=== PATIENT | female | born 1995 | race American Indian/Alaskan Native ===

== ENCOUNTER 2018-03-26 10:33 | Emergency (ER) | payer OTHER ==
[2018-03-26 11:03] VITALS: RESP 18; O2SAT 100
--- NOTE | 2018-03-26 11:36 | ED PDOC ---
Arrival/HPI - General Historian: Patient - History of Present Illness Time/Duration: 1-3 hours Symptom Onset: Sudden Symptom Course: Improving Quality: Pressure, Tightness Severity Level: 8 Activities at Onset: Light <Brendon Leroy - Last Filed: 03/26/18 16:06> <Michelet Ontiveros - Last Filed: 03/27/18 07:30> - General Chief Complaint: Chest Pain Time Seen by Provider: 03/26/18 11:03 - History of Present Illness Narrative History of Present Illness (Text): 03/26/18 11:30 Patient is a 22 yo F with no signficant PMHx who presents to the ED with R sided chest pain that began ~1-2 hours ago. She described the pain as a pressure/tightness over her chest with associated palpitations, constant in nature, rated 8/10 in severity. She denies any radiation of pain to her extremities or neck. Denies any headaches, dizziness, changes in vision, or associated nausea/vomiting. Of note, she says she has had pain like this before, her most recent episode 2 days ago. At the time, she also had R sided chest pr essure that subsided after a few hours. No other acute complaints at this time. PMHx: denies PSHx: denies Allergies: NKDA Home Medications: none FHx: HTN--mother Social Hx: denies alcohol, tobacco, illicit drug use. Denies OCP use. (RadBrendon) 03/26/18 11:30 Patient is a 22 yo F with no signficant PMHx who presents to the ED with R sided chest pain that began ~1-2 hours ago. She described the pain as a pressure/tightness over her chest with associated palpitations, constant in nature, rated 8/10 in severity. She denies any radiation of pain to her extremities or neck. Denies any headaches, dizziness, changes in vision, or associated nausea/vomiting. Of note, she says she has had pain like this before, her most recent episode 2 days ago. At the time, she also had R sided chest pressure that subsided after a few hours. No other acute complaints at this time. PMHx: denies PSHx: denies Allergies: NKDA Home Medications: none FHx: HTN--mother Social Hx: denies alcohol, tobacco, illicit drug use. Denies OCP use. (Michelet Ontiveros) Past Medical History - Provider Review Nursing Documentation Reviewed: Yes - Travel History Have you recently traveled outside [place] w/in the past 3 mons?: No - Past History Past History: No Previous - Cardiac Hx Cardiac Disorders: No - Pulmonary Hx Respiratory Disorders: No - Neurological Hx Neurological Disorder: No - HEENT Hx HEENT Disorder: No - Renal Hx Renal Disorder: No - Endocrine/Metabolic Hx Endocrine Disorders: No - Hematological/Oncological Hx Blood Disorders: No - Integumentary Hx Dermatological Disorder: No - Musculoskeletal/Rheumatological Hx Musculoskeletal Disorders: No - Gastrointestinal Hx Gastrointestinal Disorders: No - Genitourinary/Gynecological Hx Genitourinary Disorders: No - Psychiatric Hx Psychophysiologic Disorder: No Hx Substance Use: No - Anesthesia Hx Anesthesia: No <Brendon Leroy - Last Filed: 03/26/18 16:06> Family/Social History - Physician Review Nursing Documentation Reviewed: Yes Family/Social History: Hypertension Smoking Status: Never Smoked Hx Alcohol Use: No Hx Substance Use: No <Brendon Leroy - Last Filed: 03/26/18 16:06> Allergies/Home Meds <Brendon Leroy - Last Filed: 03/26/18 16:06> <Michelet Ontiveros - Last Filed: 03/27/18 07:30> Allergies/Adverse Reactions: Allergies No Known Allergies Allergy (Verified 03/26/18 10:55) Home Medications: Home Meds Medication Instructions Recorded Confirmed RX: No Known Home Med 03/26/18 03/26/18 Review of Systems - Review of Systems Constitutional: Normal Eyes: Normal ENT: Normal Respiratory: Normal, SOB Cardiovascular: Chest Pain, Palpitations. absent: Edema, Calf Pain, Syncope Gastrointestinal: Normal. absent: Abdominal Pain, Constipation, Diarrhea, Nausea, Vomiting Genitourinary Female: Normal. absent: Dysuria, Frequency, Urine Output Changes Musculoskeletal: Normal Skin: Normal Neurological: Normal. absent: Headache, Dizziness Endocrine: Normal Psychiatric: Normal <Brendon Leroy - Last Filed: 03/26/18 16:06> Physical Exam Vital Signs Reviewed: Yes Temperature: Afebrile Blood Pressure: Normal Pulse: Tachycardic Respiratory Rate: Normal Appearance: Positive for: Well-Appearing, Non-Toxic Pain Distress: Mild Mental Status: Positive for: Alert and Oriented X 3 - Systems Exam Head: Present: Atraumatic, Normocephalic Pupils: Present: PERRL Extroacular Muscles: Present: EOMI Conjunctiva: Present: Normal Ears: Present: Normal Mouth: Present: Moist Mucous Membranes Neck: Present: Normal Range of Motion Respiratory/Chest: Present: Clear to Auscultation, Good Air Exchange. No: Respiratory Distress, Accessory Muscle Use, Wheezes, Rales, Rhonchi Cardiovascular: Present: Normal S1, S2, Tachycardic. No: Murmurs Abdomen: Present: Normal Bowel Sounds. No: Tenderness, Distention, Rebound, Guarding, Mass/Organomegaly Upper Extremity: Present: Normal Inspection, Normal ROM, NORMAL PULSES, Capillary Refill < 2s. No: Cyanosis, Edema Lower Extremity: Present: Normal Inspection, NORMAL PULSES, Normal ROM. No: Edema, CALF TENDERNESS, Capillary Refill < 2 s Neurological: Present: CN II-XII Intact, Speech Normal Skin: Present: Warm, Dry, Normal Color Psychiatric: Present: Alert, Oriented x 3, Normal Insight, Normal Concentration <Brendon Leroy - Last Filed: 03/26/18 16:06> Vital Signs Temp Pulse Resp BP Pulse Ox 03/26/18 11:44 97.9 F 88 18 131/81 100 03/26/18 10:59 98.7 F 96 H 18 139/88 100 03/26/18 10:53 98.7 F 95 H 18 136/88 100 Medical Decision Making - EKG Interpretation Interpreted by ED Physician: Yes Type: 12 lead EKG <Brendon Leroy - Last Filed: 03/26/18 16:06> <Michelet Ontiveros - Last Filed: 03/27/18 07:30> ED Course and Treatment: 03/26/18 11:40 Impression: 22 yo F with no PMHx presenting with atypical chest pain, r/o GA Plan: -- CBC, CMP -- D-dimer -- CXR -- EKG -- Troponin level -- Urine -- Toradol 60 mg IM x1 for pain -- Monitor and disposition (Brendon Leroy) - Lab Interpretations Lab Results: 03/26/18 11:32 03/26/18 11:32 Lab Results 03/26/18 11:43: Troponin I < 0.01 03/26/18 11:32: Sodium 142, Potassium 3.9, Chloride 109 H, Carbon Dioxide 24, Anion Gap 13, BUN 10, Creatinine 0.9, Est GFR ( Amer) > 60, Est GFR (Non- Af Amer) > 60, Random Glucose 88, Calcium 9.8, Magnesium 1.9, Total Bilirubin 0.6, AST 23, ALT 22, Alkaline Phosphatase 96, Total Protein 7.5, Albumin 4.2, Globulin 3.4, Albumin/Globulin Ratio 1.2 03/26/18 11:32: Urine Color Yellow, Urine Appearance Sl cloudy, Urine pH 6.0, Ur Specific [place] 1.025, Urine Protein 30 H, Urine Glucose (UA) Negative, Urine Ketones Trace H, Urine Blood Negative, Urine Nitrate Negative, Urine Bilirubin Small H, Urine Urobilinogen 1.0 H, Ur Leukocyte Esterase Moderate H, Urine RBC 0 - 2, Urine WBC 15 - 20, Ur Epithelial Cells 4 - 5, Urine Bacteria Many 03/26/18 11:32: D-Dimer, Quantitative < 200 03/26/18 11:32: WBC 8.2, RBC 4.41, Hgb 12.3, Hct 38.0, MCV 86.2, MCH 27.9, MCHC 32.4, RDW 13.9, Plt Count 250, MPV 11.3 H, Gran % 74.2 H, Lymph % (Auto) 15.3 L, [place] % (Auto) 6.3 H, Eos % (Auto) 4.1, Baso % (Auto) 0.1, Gran # 6.08, Lymph # (Auto) 1.3, [place] # (Auto) 0.5, Eos # (Auto) 0.3, Baso # (Auto) 0.01 - RAD Interpretation Radiology Orders: 03/26/18 11:26 CHEST PORTABLE [RAD] Stat - EKG Interpretation EKG Interpretation (Text): 03/26/18 11:39 NSR 92 bpm (Loccisano,Brendon) 03/26/18 11:39 NSR 92 bpm (Bosompem,Michelet) - Medication Orders Current Medication Orders: Discontinued Medications Ketorolac Tromethamine (Toradol) 60 mg IM STAT STA Stop: 03/26/18 11:28 Last Admin: 03/26/18 11:40 Dose: 60 mg MAR Pain Assessment Document 03/26/18 11:40 LA (Rec: 03/26/18 11:40 LA [id number]) Pain Reassessment Is this a pain reassessment? No Sleep Is patient sleeping during reassessment? No Presence of Pain Presence of Pain Yes Pain Scale Used Protocol: PSCALES Pain Scale Used Numeric Location Pain Location Body Site Chest Description Description Intermittent Intensity of Pain at present 8 IM Administration Charges Document 03/26/18 11:40 LA (Rec: 03/26/18 11:40 [id number] Charges for Administration # of IM Administrations 1 - PA / BEE BREEDER / Resident Statement / has reviewed & agrees with the documentation as recorded. / has examined the patient and agrees with the treatment plan. <Michelet Ontiveros - Last Filed: 03/27/18 07:30> Disposition/Present on Arrival - Present on Arrival Any Indicators Present on Arrival: No History of DVT/PE: No History of Uncontrolled Diabetes: No Urinary Catheter: No History of Decub. Ulcer: No History Surgical Site Infection Following: None <Brendon Leroy - Last Filed: 03/26/18 16:06> - Present on Arrival Any Indicators Present on Arrival: No - Disposition Have Diagnosis and Disposition been Completed?: Yes Disposition Time: 12:20 Patient Plan: Discharge <Michelet Ontiveros - Last Filed: 03/27/18 07:30> - Disposition Diagnosis: UTI (urinary tract infection), Chest pain, Anxiety Disposition: HOME/ ROUTINE Condition: STABLE Discharge Instructions (ExitCare): Chest Pain That Is Not Caused by the Heart (DC), Urinary Tract Infection, Adult (DC), Anxiety, Adult (DC) Referrals: Joana Healy MD [Medical Doctor] - Follow up with primary [facility] at [facility] [place]] - Follow up with primary Forms: [facility] (Korean), WORK NOTE
[2018-03-26 11:45] VITALS: BP 131/81; PULSE 88; TEMP 97.9
[2018-03-26 11:45] LABS: BASO # 0.01 K/mm3 (0.0-2.0); BASO % 0.1 % (0.0-3.0); EOS # 0.3 (0.0-0.7); EOS % 4.1 % (1.5-5.0); GRAN # 6.08 (1.4-6.5); GRAN % 74.2 % (50.0-68.0); HEMOGLOBIN 12.3 g/dL (12.0-16.0); LYMPH # 1.3 (1.2-3.4); LYMPH % 15.3 % (22.0-35.0); MEAN CELL VOLUME 86.2 fl (80.0-105.0); MEAN CORPUSCULAR HEMOGLOBIN 27.9 pg (25.0-35.0); MEAN CORPUSCULAR HGB CONC 32.4 g/dl (31.0-37.0); MEAN PLATELET VOLUME 11.3 fl (7.0-11.0); MONO # 0.5 (0.1-0.6); MONO % 6.3 % (1.0-6.0); RBC 4.41 10^6/uL (3.5-6.1); RED CELL DISTRIBUTION WIDTH 13.9 % (11.5-14.5); URINE BILIRUBIN SMALL (NEGATIVE); URINE BLOOD NEGATIVE (NEGATIVE); URINE GLUCOSE (UA) NEGATIVE (NEGATIVE); URINE LEUKOCYTE ESTERASE MODERATE Leu/uL (NEGATIVE); URINE PROTEIN 30 mg/dL (<30 mg/dL); WHITE BLOOD COUNT 8.2 10^3/ul (4.5-11.0)
[2018-03-26 11:53] LABS: ALB/GLOB RATIO 1.2 (1.1-1.8); ALBUMIN 4.2 g/dL (3.0-4.8); ALT/SGPT 22 U/L (7-56); AST/SGOT 23 U/L (14-36); BLOOD UREA NITROGEN 10 mg/dL (7-21); CALCIUM 9.8 mg/dL (8.4-10.5); GFR NON-AFRICAN AMERICAN > 60
[2018-03-26 12:00] LABS: URINE APPEARANCE SL CLOUDY (CLEAR); URINE COLOR YELLOW (YELLOW)
[2018-03-26 12:03] LABS: URINE BACTERIA MANY (NEG); URINE RBC 0 - 2 /hpf (0-2); URINE WBC 15 - 20 /hpf (0-6)
--- NOTE | 2018-03-26 12:18 | RAD ---
Date of service: 03/26/2018 HISTORY: Chest pain. COMPARISON: No prior. FINDINGS: LUNGS: No active pulmonary disease. PLEURA: No significant pleural effusion identified, no pneumothorax apparent. CARDIOVASCULAR: Normal. OSSEOUS STRUCTURES: No significant abnormalities. VISUALIZED UPPER ABDOMEN: Normal. OTHER FINDINGS: None. IMPRESSION: No active disease.
--- NOTE | 2018-03-26 13:35 | CARD ---
APPROVED REPORT Date of service: 03/26/2018 EKG Measurement Heart [id number] <Conclusion> Normal sinus rhythm Normal ECG
== END 2018-03-26 12:54 | disposition home or self-care (01) ==
LOC: ED 10:33 → MERGE 10:33 → ED 12:54
DX: R07.9 Chest pain, unspecified (principal); N39.0 Urinary tract infection, site not specified; F41.9 Anxiety disorder, unspecified
CPT/HCPCS: 71045; 80053; 81001; 83735; 84484; 85025; 85378; 87086; 93005; 96372; 99284; J1885

== ENCOUNTER 2018-04-12 23:21 | Emergency (ER) | payer BC, OTHER ==
[2018-04-12 23:32] VITALS: BMI 25.6
[2018-04-12 23:33] VITALS: TEMP 98.5; O2SAT 98
--- NOTE | 2018-04-12 23:57 | ED PDOC ---
Arrival/HPI - General Chief Complaint: Chest Pain Time Seen by Provider: 04/12/18 23:26 Historian: Patient - History of Present Illness Narrative History of Present Illness (Text): 04/12/18 23:53 Anamika San is a 22 year old female, with no significant past medical history, who presents to the Emergency department complaining of chest pain. Patient states she was at home this evening when she began experiencing sharp left-sided chest pain. Patient also reports some right-sided chest pain and notes pain is worsened with deep inspiration. Patient denies any fever, chills, shortness of breath, nausea, vomiting, headache, dizziness, or any other complaints. Time/Duration: Other (tonight) Symptom Onset: Gradual Symptom Course: Unchanged Activities at Onset: Light Context: Home Past Medical History - Provider Review Nursing Documentation Reviewed: Yes - Past History Past History: No Previous - Infectious Disease Hx of Infectious Diseases: None - Cardiac Hx Cardiac Disorders: No - Pulmonary Hx Respiratory Disorders: No - Neurological Hx Neurological Disorder: No - HEENT Hx HEENT Disorder: No - Renal Hx Renal Disorder: No - Endocrine/Metabolic Hx Endocrine Disorders: No - Hematological/Oncological Hx Blood Disorders: No - Integumentary Hx Dermatological Disorder: No - Musculoskeletal/Rheumatological Hx Musculoskeletal Disorders: No - Gastrointestinal Hx Gastrointestinal Disorders: No - Genitourinary/Gynecological Hx Genitourinary Disorders: No - Psychiatric Hx Psychophysiologic Disorder: No Hx Substance Use: No - Anesthesia Hx Anesthesia: No Family/Social History - Physician Review Nursing Documentation Reviewed: Yes Family/Social History: Unknown Family HX Smoking Status: Never Smoked Hx Alcohol Use: No Hx Substance Use: No Allergies/Home Meds Allergies/Adverse Reactions: Allergies No Known Allergies Allergy (Verified 04/12/18 23:31) Home Medications: Home Meds Medication Instructions Recorded Confirmed RX: No Known Home Med 01/16/16 04/12/18 RX: No Known Home Med 03/26/18 04/12/18 Review of Systems - Physician Review All systems were reviewed & negative as marked: Yes - Review of Systems Constitutional: Normal. absent: Fevers Eyes: Normal ENT: Normal Respiratory: Normal. absent: SOB, Cough Cardiovascular: Chest Pain Gastrointestinal: Normal. absent: Abdominal Pain, Diarrhea, Nausea, Vomiting Genitourinary Female: Normal. absent: Dysuria, Frequency, Hematuria, Urine Output Changes Musculoskeletal: Normal. absent: Back Pain, Neck Pain Skin: Normal. absent: Rash Neurological: Normal. absent: Headache, Dizziness Endocrine: Normal Hemo/Lymphatic: Normal Psychiatric: Normal Physical Exam Vital Signs Reviewed: Yes Vital Signs Temp Pulse Resp BP Pulse Ox 04/12/18 23:32 98.5 F 110 H 100 H 120/78 98 Temperature: Afebrile Blood Pressure: Normal Pulse: Tachycardic Respiratory Rate: Normal Appearance: Positive for: Well-Appearing, Non-Toxic, Comfortable Pain Distress: None Mental Status: Positive for: Alert and Oriented X 3 - Systems Exam Head: Present: Atraumatic, Normocephalic Pupils: Present: PERRL Extroacular Muscles: Present: EOMI Conjunctiva: Present: Normal Mouth: Present: Moist Mucous Membranes Neck: Present: Normal Range of Motion. No: Meningeal Signs, MIDLINE TENDERNESS, Paraspinal Tenderness Respiratory/Chest: Present: Clear to Auscultation, Good Air Exchange. No: Respiratory Distress, Accessory Muscle Use Cardiovascular: Present: Regular Rate and Rhythm, Normal S1, S2. No: Murmurs Abdomen: No: Tenderness, Distention, Peritoneal Signs Back: Present: Normal Inspection Upper Extremity: Present: Normal Inspection. No: Cyanosis, Edema Lower Extremity: Present: Normal Inspection. No: Edema Neurological: Present: GCS=15, CN II-XII Intact, Speech Normal Skin: Present: Warm, Dry, Normal Color. No: Rashes Psychiatric: Present: Alert, Oriented x 3, Normal Insight, Normal Concentration Medical Decision Making ED Course and Treatment: 04/12/18 23:53 Impression: 22 year old female complaining of sharp chest pain, worsened with deep inspiration. Plan: -- EKG -- Labs, cardiac enzymes, D-dimer -- UA -- Reassess and disposition Prior Visits: Notes and results from previous visits were reviewed. On 03/26/2018, patient was seen in the Emergency department for right-sided chest pain with palpitations. Patient was discharge home. Progress Notes: Reviewed EKG, NSR at [address]-segment elevations or depressions, no T-wave inversions, normal intervals. - Lab Interpretations I have reviewed the lab results: Yes - EKG Interpretation Interpreted by ED Physician: Yes Type: 12 lead EKG - Scribe Statement The provider has reviewed the documentation as recorded by the Neel Frost Provider Scribe Attestation: All medical record entries made by the Scribe were at my direction and personally dictated by me. I have reviewed the chart and agree that the record accurately reflects my personal performance of the history, physical exam, medical decision making, and the department course for this patient. I have also personally directed, reviewed, and agree with the discharge instructions and disposition. Disposition/Present on Arrival - Present on Arrival Any Indicators Present on Arrival: No History of DVT/PE: No History of Uncontrolled Diabetes: No Urinary Catheter: No History of Decub. Ulcer: No History Surgical Site Infection Following: None - Disposition Have Diagnosis and Disposition been Completed?: Yes Diagnosis: Chest pain Disposition: HOME/ ROUTINE Disposition Time: 02:00 Patient Problems: Current Active Problems Problem Status Onset Chest pain Acute Condition: GOOD Discharge Instructions (ExitCare): Chest Pain, Chest Pain (ED) Forms: [facility] (Nigerien), WORK NOTE
[2018-04-13 00:28] LABS: ALB/GLOB RATIO 1.2 (1.1-1.8); ALBUMIN 4.2 g/dL (3.0-4.8); ALT/SGPT 17 U/L (7-56); AST/SGOT 25 U/L (14-36); BASO # 0.03 K/mm3 (0.0-2.0); BASO % 0.4 % (0.0-3.0); BLOOD UREA NITROGEN 11 mg/dL (7-21); CALCIUM 9.8 mg/dL (8.4-10.5); EOS # 0.2 (0.0-0.7); EOS % 1.9 % (1.5-5.0); GFR NON-AFRICAN AMERICAN > 60; GRAN # 5.31 (1.4-6.5); GRAN % 61.9 % (50.0-68.0); HEMOGLOBIN 12.5 g/dL (12.0-16.0); LYMPH # 2.5 (1.2-3.4); LYMPH % 28.9 % (22.0-35.0); MEAN CELL VOLUME 86.5 fl (80.0-105.0); MEAN CORPUSCULAR HEMOGLOBIN 28.5 pg (25.0-35.0); MEAN PLATELET VOLUME 11.3 fl (7.0-11.0); MONO # 0.6 (0.1-0.6); MONO % 6.9 % (1.0-6.0); RBC 4.38 10^6/uL (3.5-6.1); RED CELL DISTRIBUTION WIDTH 13.8 % (11.5-14.5); WHITE BLOOD COUNT 8.6 10^3/ul (4.5-11.0)
[2018-04-13 00:30] LABS: URINE BILIRUBIN NEGATIVE (NEGATIVE); URINE BLOOD LARGE (NEGATIVE); URINE GLUCOSE (UA) NEGATIVE (NEGATIVE); URINE LEUKOCYTE ESTERASE NEGATIVE Leu/uL (NEGATIVE); URINE PROTEIN TRACE mg/dL (<30 mg/dL)
[2018-04-13 00:39] LABS: TROPONIN I < 0.01 ng/mL
[2018-04-13 00:41] LABS: URINE APPEARANCE CLEAR (CLEAR); URINE COLOR LIGHT YELLOW (YELLOW)
[2018-04-13 02:17] LABS: URINE BACTERIA SMALL (NEG); URINE WBC 0 - 2 /hpf (0-6)
[2018-04-13 02:42] VITALS: BP 121/82; PULSE 85; RESP 18
--- NOTE | 2018-04-13 15:19 | CARD ---
APPROVED REPORT Date of service: 04/12/2018 EKG Measurement Heart [id number] [place] [id number] [id number] <Conclusion> Normal sinus rhythm Normal ECG
== END 2018-04-13 01:55 | disposition home or self-care (01) ==
LOC: ED 23:21
DX: R07.9 Chest pain, unspecified (principal)

== ENCOUNTER 2018-05-26 04:14 | Emergency (ER) | payer BC, OTHER ==
[2018-05-26 04:21] VITALS: BMI 26.5
[2018-05-26 04:22] VITALS: RESP 18; TEMP 97.8; O2SAT 100
--- NOTE | 2018-05-26 06:02 | ED PDOC ---
Arrival/HPI - General Chief Complaint: Chest Pain Historian: Patient - History of Present Illness Narrative History of Present Illness (Text): 05/26/18 05:30 23 year old female, with no significant past medical history, who presents to the emergency department complaining of sharp right sided chest pain and headache. Patient reports her chest pain increases when she coughs or moves. Patient denies shortness of breath, fever, abdominal pain, or any other complaints. Time/Duration: Prior to Arrival Symptom Onset: Sudden Symptom Course: Unchanged Activities at Onset: Light Past Medical History - Provider Review Nursing Documentation Reviewed: Yes - Past History Past History: No Previous - Infectious Disease Hx of Infectious Diseases: None - Cardiac Hx Cardiac Disorders: No - Pulmonary Hx Respiratory Disorders: No - Neurological Hx Neurological Disorder: No - HEENT Hx HEENT Disorder: No - Renal Hx Renal Disorder: No - Endocrine/Metabolic Hx Endocrine Disorders: No - Hematological/Oncological Hx Blood Disorders: No - Integumentary Hx Dermatological Disorder: No - Musculoskeletal/Rheumatological Hx Musculoskeletal Disorders: No - Gastrointestinal Hx Gastrointestinal Disorders: No - Genitourinary/Gynecological Hx Genitourinary Disorders: No - Psychiatric Hx Psychophysiologic Disorder: No Hx Substance Use: No - Anesthesia Hx Anesthesia: No Hx Anesthesia Reactions: No Hx Malignant Hyperthermia: No Family/Social History - Physician Review Nursing Documentation Reviewed: Yes Family/Social History: No Known Family HX Smoking Status: Never Smoked Hx Alcohol Use: No Hx Substance Use: No Allergies/Home Meds Allergies/Adverse Reactions: Allergies No Known Allergies Allergy (Verified 04/12/18 23:31) Review of Systems - Physician Review All systems were reviewed & negative as marked: Yes - Review of Systems Constitutional: Normal. absent: Fevers Respiratory: Normal. absent: SOB Cardiovascular: Chest Pain (patient notes sharp right-sided chest pain. states CP worsens with cough or movement. ). absent: Normal Gastrointestinal: Normal. absent: Abdominal Pain Neurological: Headache. absent: Normal Physical Exam Vital Signs Reviewed: Yes Vital Signs Temp Pulse Resp BP Pulse Ox 05/26/18 04:22 97.8 F 81 18 132/101 H 100 Temperature: Afebrile Blood Pressure: Normal Pulse: Regular Respiratory Rate: Normal Appearance: Positive for: Well-Appearing, Non-Toxic Pain Distress: Mild Mental Status: Positive for: Alert and Oriented X 3 - Systems Exam Head: Present: Atraumatic, Normocephalic Pupils: Present: PERRL Extroacular Muscles: Present: EOMI Conjunctiva: Present: Normal Mouth: Present: Moist Mucous Membranes Neck: Present: Normal Range of Motion Respiratory/Chest: Present: Tender to Palpation (point tenderness to right anterior chest wall ) Cardiovascular: Present: Regular Rate and Rhythm, Normal S1, S2. No: Murmurs Abdomen: No: Tenderness, Distention, Peritoneal Signs Back: Present: Normal Inspection Upper Extremity: Present: Normal Inspection. No: Cyanosis, Edema Lower Extremity: Present: Normal Inspection. No: Edema Neurological: Present: GCS=15, CN II-XII Intact, Speech Normal Skin: Present: Warm, Dry, Normal Color. No: Rashes Psychiatric: Present: Alert, Oriented x 3, Normal Insight, Normal Concentration Medical Decision Making ED Course and Treatment: 05/26/18 05:30 Impression: 23 year old female who presents to the emergency department complaining of sharp right sided chest pain and headache. Plan: -- EKG -- X-ray of chest -- Reassess and disposition Prior Visits: Notes and results from previous visits were reviewed. Patient was last seen in the emergency department on 04/12/18 for sharp left-sided chest pain. Patient was discharged home in good condition, with diagnosis of chest pain. Progress Notes: - RAD Interpretation Narrative RAD Interpretations (Text): 05/26/18 x-ray of chest reviewed by me, shows: negative x-ray read. Radiology Orders: 05/26/18 05:31 CXR [CHEST PORTABLE] [RAD] Stat Circulation Assistant: ED Physician - EKG Interpretation EKG Interpretation (Text): 05/26/18 EKG: Ordered, reviewed, and independently interpreted the EKG. Rate : 73 BPM Rhythm : NSR Interpretation : No ST-segment elevations or depressions, no T-wave inversions, normal intervals. Interpreted by ED Physician: Yes Type: 12 lead EKG - Scribe Statement The provider has reviewed the documentation as recorded by the Scribe Tania Barrera All medical record entries made by the Scribe were at my direction and personally dictated by me. I have reviewed the chart and agree that the record accurately reflects my personal performance of the history, physical exam, medical decision making, and the department course for this patient. I have also personally directed, reviewed, and agree with the discharge instructions and disposition. Disposition/Present on Arrival - Present on Arrival Any Indicators Present on Arrival: No History of DVT/PE: No History of Uncontrolled Diabetes: No Urinary Catheter: No History of Decub. Ulcer: No History Surgical Site Infection Following: None - Disposition Have Diagnosis and Disposition been Completed?: Yes Diagnosis: Musculoskeletal pain Disposition: HOME/ ROUTINE Disposition Time: 06:00 Condition: GOOD Discharge Instructions (ExitCare): Muscle and Bone Pain (DC) Additional Instructions: [facility], thank you for letting us take care of you today. The emergency medical care you received today was directed at your acute symptoms. If you were prescribed any medication, please fill it and take as directed. It may take several days for your symptoms to resolve. Return to the Emergency Department if your symptoms worsen, do not improve, or if you have any other problems. Please contact your doctor or call one of the physicians/clinics you have been referred to that are listed on the Patient Visit Information form that is included in your discharge packet. Bring any paperwork you were given at discharge with you along with any medications you are taking to your follow up visit. Our treatment cannot replace ongoing medical care by a primary care provider outside of the emergency department. Thank you for allowing the [facility] team to be part of your care today. Followup with your primary care doctor this week for re-evaluation and further management. Prescriptions: Cyclobenzaprine [Cyclobenzaprine HCl] 10 mg PO Q8 PRN #20 tab PRN Reason: Muscle Spasm Ibuprofen [Motrin] 600 mg PO Q6 PRN #20 tab PRN Reason: Pain, Moderate (4-7) Referrals: [facility] Rekj, [Non-Staff] - Follow up with primary Forms: [facility] (Turkish), WORK NOTE
[2018-05-26 06:32] VITALS: BP 125/89; PULSE 85
--- NOTE | 2018-05-26 09:28 | RAD ---
Date of service: 05/26/2018 HISTORY: r/o infiltrate COMPARISON: 03/26/2018 FINDINGS: LUNGS: No active pulmonary disease. PLEURA: No significant pleural effusion identified, no pneumothorax apparent. CARDIOVASCULAR: No aortic atherosclerotic calcification present. Normal cardiac size. No pulmonary vascular congestion. OSSEOUS STRUCTURES: No significant abnormalities. VISUALIZED UPPER ABDOMEN: Normal. OTHER FINDINGS: None. IMPRESSION: No active disease.
--- NOTE | 2018-05-26 13:34 | CARD ---
APPROVED REPORT Date of service: 05/26/2018 EKG Measurement Heart [id number] [place] [id number] <Conclusion> Normal sinus rhythm with sinus arrhythmia Normal ECG
== END 2018-05-26 06:11 | disposition home or self-care (01) ==
LOC: ED 04:14
DX: M79.18 Myalgia, other site (principal)

== ENCOUNTER 2018-06-05 17:08 | Emergency (ER) | payer BC, OTHER ==
[2018-06-05 17:08] VITALS: BMI 26.5
[2018-06-05 17:49] VITALS: RESP 18; TEMP 98.5; O2SAT 100
--- NOTE | 2018-06-05 18:38 | ED PDOC ---
Arrival/HPI - General Chief Complaint: Chest Pain Historian: Patient - History of Present Illness Narrative History of Present Illness (Text): 06/05/18 18:31 23yo female with no pmhx who present with complaint of sharp right sided chest pain since yesterday. states pain is temporary relieved with Tylenol. Pain is usually with deep inspiration and movement. Notes that she saw her PMD yesterday for this pain and was told to take Tylenol for the pain. Notes she have appointment with a Pvc Loader next week Saturday. The last time she took Tylenol was at 1200 today. She denies fever, chills, cough, SOB, diaphoresis, LE edema, calf pain, recent travel/surgery, OCP use, hemoptysis. Past Medical History - Provider Review Nursing Documentation Reviewed: Yes - Past History Past History: No Previous - Infectious Disease Hx of Infectious Diseases: None - Cardiac Hx Cardiac Disorders: No - Pulmonary Hx Respiratory Disorders: No - Neurological Hx Neurological Disorder: No - HEENT Hx HEENT Disorder: No - Renal Hx Renal Disorder: No - Endocrine/Metabolic Hx Endocrine Disorders: No - Hematological/Oncological Hx Blood Disorders: No - Integumentary Hx Dermatological Disorder: No - Musculoskeletal/Rheumatological Hx Musculoskeletal Disorders: No - Gastrointestinal Hx Gastrointestinal Disorders: No - Genitourinary/Gynecological Hx Genitourinary Disorders: No - Psychiatric Hx Psychophysiologic Disorder: No Hx Substance Use: No - Anesthesia Hx Anesthesia: No Hx Anesthesia Reactions: No Hx Malignant Hyperthermia: No Family/Social History - Physician Review Nursing Documentation Reviewed: Yes Family/Social History: Unknown Family HX Smoking Status: Never Smoked Hx Alcohol Use: No Hx Substance Use: No Allergies/Home Meds Allergies/Adverse Reactions: Allergies No Known Allergies Allergy (Verified 04/12/18 23:31) Review of Systems - Physician Review All systems were reviewed & negative as marked: Yes - Review of Systems Constitutional: Normal Eyes: Normal ENT: Normal Respiratory: Normal Cardiovascular: Chest Pain. absent: Palpitations, Edema, Calf Pain, LUEVANO Gastrointestinal: Normal Genitourinary Female: Normal Musculoskeletal: Normal Skin: Normal Neurological: Normal Endocrine: Normal Hemo/Lymphatic: Normal Psychiatric: Normal Physical Exam Vital Signs Reviewed: Yes Vital Signs Temp Pulse Resp BP Pulse Ox 06/05/18 17:08 98.5 F 94 H 18 130/87 100 Temperature: Afebrile Blood Pressure: Normal Pulse: Regular Respiratory Rate: Normal Appearance: Positive for: Well-Appearing, Non-Toxic, Comfortable Pain Distress: None Mental Status: Positive for: Alert and Oriented X 3 - Systems Exam Head: Present: Atraumatic, Normocephalic Pupils: Present: PERRL Extroacular Muscles: Present: EOMI Conjunctiva: Present: Normal Mouth: Present: Moist Mucous Membranes Neck: Present: Normal Range of Motion Respiratory/Chest: Present: Clear to Auscultation, Good Air Exchange, Tender to Palpation (Right side). No: Respiratory Distress, Accessory Muscle Use, Wheezes, Decreased Breath Sounds, Rales, Retracting, Rhonchi, Tachypneic Cardiovascular: Present: Regular Rate and Rhythm, Normal S1, S2. No: Murmurs Abdomen: No: Tenderness, Distention, Peritoneal Signs Back: Present: Normal Inspection Upper Extremity: Present: Normal Inspection. No: Cyanosis, Edema Lower Extremity: Present: Normal Inspection. No: Edema Neurological: Present: GCS=15, CN II-XII Intact, Speech Normal Skin: Present: Warm, Dry, Normal Color. No: Rashes Psychiatric: Present: Alert, Oriented x 3, Normal Insight, Normal Concentration Medical Decision Making ED Course and Treatment: 06/06/18 00:30 23yo female in ED for right sided chest pain Labs EKG Chest xray Toradol EKG NSR @ 93bpm CXR NAD All labs was wnl. Pt's chart was reviewed and she has been seen here multiple times for same complaint. the last time was in May. Patient already have appointment net with a Pvc Loader She have no cardiac risk factor and her Well's criteria is negative All result was DW the pt and she was referred to her Pvc Loader. - RAD Interpretation Radiology Orders: 06/05/18 18:10 CHEST TWO VIEWS (PA/LAT) [RAD] Stat Disposition/Present on Arrival - Present on Arrival Any Indicators Present on Arrival: No History of DVT/PE: No History of Uncontrolled Diabetes: No Urinary Catheter: No History of Decub. Ulcer: No History Surgical Site Infection Following: None - Disposition Have Diagnosis and Disposition been Completed?: Yes Diagnosis: Chest pain Disposition: HOME/ ROUTINE Disposition Time: 19:25 Patient Plan: Discharge Condition: STABLE Discharge Instructions (ExitCare): Chest Pain, Chest Pain (ED) Additional Instructions: Follow up with your Doctor/Pvc Loader Return to ED for any new or worsening symptoms Prescriptions: RX: Ibuprofen [Motrin Tab] 600 mg PO Q6 #15 tab Referrals: Blaze Patel DO [Primary Care Provider] - Follow up with primary Forms: [employer] (Kazakh)
[2018-06-05 18:46] LABS: URINE APPEARANCE CLEAR (CLEAR); URINE BILIRUBIN NEGATIVE (NEGATIVE); URINE BLOOD NEGATIVE (NEGATIVE); URINE COLOR YELLOW (YELLOW); URINE GLUCOSE (UA) NEGATIVE (NEGATIVE); URINE LEUKOCYTE ESTERASE NEGATIVE Leu/uL (NEGATIVE); URINE PROTEIN TRACE mg/dL (<30 mg/dL); URINE UROBILINOGEN 0.2 E.U./dL (<1 E.U./dL)
[2018-06-05 18:58] LABS: HEMOGLOBIN 12.2 g/dL (12.0-16.0); RBC 4.25 10^6/uL (3.5-6.1); WHITE BLOOD COUNT 7.3 10^3/uL (4.5-11.0)
[2018-06-05 18:59] LABS: BASO # 0.02 K/mm3 (0.0-2.0); BASO % 0.3 % (0.0-3.0); EOS % 0.1 % (1.5-5.0); GRAN # 5.07 (1.4-6.5); GRAN % 69.6 % (50.0-68.0); LYMPH # 1.7 (1.2-3.4); LYMPH % 22.9 % (22.0-35.0); MEAN CELL VOLUME 86.6 fl (80.0-105.0); MEAN CORPUSCULAR HEMOGLOBIN 28.7 pg (25.0-35.0); MEAN CORPUSCULAR HGB CONC 33.2 g/dl (31.0-37.0); MEAN PLATELET VOLUME 10.8 fl (7.0-11.0); MONO # 0.5 (0.1-0.6); MONO % 7.1 % (1.0-6.0); RED CELL DISTRIBUTION WIDTH 14.3 % (11.5-14.5)
[2018-06-05 19:00] LABS: URINE RBC 0 - 2 /hpf (0-2); URINE WBC 0 - 2 /hpf (0-6)
[2018-06-05 19:06] LABS: INR 1.22; PARTIAL THROMBOPLASTIN TIME 29.9 Seconds (25.1-36.5)
[2018-06-05 19:11] LABS: ALB/GLOB RATIO 1.2 (1.1-1.8); ALBUMIN 4.1 g/dL (3.0-4.8); ALT/SGPT 29 U/L (7-56); AST/SGOT 32 U/L (14-36); BLOOD UREA NITROGEN 10 mg/dL (7-21); CALCIUM 9.5 mg/dL (8.4-10.5); GFR NON-AFRICAN AMERICAN > 60
[2018-06-05 19:22] LABS: TROPONIN I < 0.01 ng/mL
[2018-06-05 19:30] LABS: D DIMER < 200 ng/mlDDU (0-243)
[2018-06-05 20:36] VITALS: BP 128/89; PULSE 92
--- NOTE | 2018-06-06 08:46 | RAD ---
Date of service: 06/05/2018 HISTORY: chest pain COMPARISON: 05/26/2018 TECHNIQUE: Chest PA and lateral FINDINGS: LUNGS: No active pulmonary disease. PLEURA: No significant pleural effusion identified. No pneumothorax apparent. CARDIOVASCULAR: No aortic atherosclerotic calcification present. Normal cardiac size. No pulmonary vascular congestion. OSSEOUS STRUCTURES: No significant abnormalities. VISUALIZED UPPER ABDOMEN: Normal. OTHER FINDINGS: None. IMPRESSION: No active disease.
--- NOTE | 2018-06-06 16:23 | CARD ---
APPROVED REPORT Date of service: 06/05/2018 EKG Measurement Heart [id number] <Conclusion> Normal sinus rhythm Normal ECG
== END 2018-06-05 19:35 | disposition home or self-care (01) ==
LOC: ED 17:08
DX: R07.9 Chest pain, unspecified (principal)
CPT/HCPCS: 71046; 80053; 81001; 82550; 83615; 83735; 84484; 85025; 85378; 85610; 85730; 93005; 96374; 99283; J1885

== ENCOUNTER 2018-06-29 03:02 | Emergency (ER) | payer BC, OTHER ==
[2018-06-29 03:52] VITALS: TEMP 98.4
[2018-06-29 03:54] VITALS: BMI 26.8
[2018-06-29] MEDS ORDERED: Sodium Chloride 0.9% 1,000 ML IV STA (04:00)
--- NOTE | 2018-06-29 04:11 | ED PDOC ---
Arrival/HPI - History of Present Illness Narrative History of Present Illness (Text): 06/29/18 04:02 23F no past medical history presents to Emergency department with 2 days of vomiting. Pt reports taking a vitamin at work and eating a banana but since then has been unable to tolerate food or fluids. Pt did not take any medications, last episode of vomiting was at 11pm. Pt is resting comfortably in bed Time/Duration: < week (2 days) Symptom Course: Unchanged Activities at Onset: Rest Context: Work <Conor Ariza - Last Filed: 06/29/18 05:41> <Inocencio Chavarria - Last Filed: 06/30/18 10:41> - General Chief Complaint: Abdominal Pain Time Seen by Provider: 06/29/18 03:36 Past Medical History - Provider Review Nursing Documentation Reviewed: Yes - Past History Past History: No Previous - Infectious Disease Hx of Infectious Diseases: None - Cardiac Hx Cardiac Disorders: No - Pulmonary Hx Respiratory Disorders: No - Neurological Hx Neurological Disorder: No - HEENT Hx HEENT Disorder: No - Renal Hx Renal Disorder: No - Endocrine/Metabolic Hx Endocrine Disorders: No - Hematological/Oncological Hx Blood Disorders: No - Integumentary Hx Dermatological Disorder: No - Musculoskeletal/Rheumatological Hx Musculoskeletal Disorders: No - Gastrointestinal Hx Gastrointestinal Disorders: No - Genitourinary/Gynecological Hx Genitourinary Disorders: No - Psychiatric Hx Psychophysiologic Disorder: No Hx Substance Use: No - Anesthesia Hx Anesthesia: No Hx Anesthesia Reactions: No Hx Malignant Hyperthermia: No <Conor Ariza - Last Filed: 06/29/18 05:41> Family/Social History Family/Social History: Unknown Family HX Smoking Status: Never Smoked Hx Alcohol Use: No Hx Substance Use: No <Conor Ariza - Last Filed: 06/29/18 05:41> Allergies/Home Meds <Conor Ariza - Last Filed: 06/29/18 05:41> <Inocencio Chavarria - Last Filed: 06/30/18 10:41> Allergies/Adverse Reactions: Allergies No Known Allergies Allergy (Verified 04/12/18 23:31) Review of Systems - Review of Systems Constitutional: Night Sweats. absent: Fevers Respiratory: absent: SOB, Cough Gastrointestinal: Abdominal Pain, Diarrhea (x1) Musculoskeletal: absent: Arthralgias Neurological: absent: Headache Endocrine: absent: Diaphoresis Psychiatric: absent: Anxiety <Conor Ariza - Last Filed: 06/29/18 05:41> Physical Exam Vital Signs Temp Pulse Resp BP Pulse Ox 06/29/18 03:52 98.4 F 98 H 21 116/81 98 Temperature: Afebrile Blood Pressure: Normal Pulse: Regular Respiratory Rate: Normal Appearance: Positive for: Non-Toxic Pain Distress: Mild Mental Status: Positive for: Alert and Oriented X 3 - Systems Exam Head: Present: Atraumatic, Normocephalic Extroacular Muscles: No: Gaze Palsy Mouth: Present: Moist Mucous Membranes Pharnyx: Present: Normal. No: ERYTHEMA Nose (Internal): Present: Normal Inspection Neck: Present: Normal Range of Motion Respiratory/Chest: Present: Clear to Auscultation. No: Respiratory Distress, Wheezes, Rales Cardiovascular: Present: Regular Rate and Rhythm, Normal S1, S2. No: Murmurs Abdomen: Present: Tenderness (epigastric). No: Distention Back: Present: Normal Inspection Neurological: Present: GCS=15, CN II-XII Intact Skin: Present: Warm, Dry, Normal Color Psychiatric: Present: Alert, Oriented x 3 <Conor Ariza - Last Filed: 06/29/18 05:41> Vital Signs Temp Pulse Resp BP Pulse Ox 06/29/18 06:00 89 18 121/78 100 06/29/18 03:52 98.4 F 98 H 21 116/81 98 <Inocencio Chavarria - Last Filed: 06/30/18 10:41> Medical Decision Making ED Course and Treatment: 06/29/18 04:44 #gastroenteritis f/u CBC, CMP, Lipase, POC, Urinalysis IV zofran 4mg and 1L NS bolus STAT - Medication Orders Current Medication Orders: Sodium Chloride (Sodium Chloride 0.9%) 1,000 mls @ 999 mls/hr IV .Q1H1M STA Stop: 06/29/18 05:00 Ondansetron HCl (Zofran Inj) 4 mg IVP STAT STA Stop: 06/29/18 04:01 <Conor Ariza - Last Filed: 06/29/18 05:41> - Lab Interpretations Lab Results: 06/29/18 04:29 06/29/18 04:29 Lab Results 06/29/18 04:29: Sodium 138, Potassium 4.2, Chloride 107, Carbon Dioxide 23, Anion Gap 12, BUN 16, Creatinine 0.8, Est GFR ( Amer) > 60, Est GFR (Non- Af Amer) > 60, Random Glucose 93, Calcium 9.4, Phosphorus 3.6, Magnesium 2.0, Total Bilirubin 0.4, AST 28, ALT 31, Alkaline Phosphatase 86, Total Protein 7.8, Albumin 4.3, Globulin 3.5, Albumin/Globulin Ratio 1.2, Lipase 58 06/29/18 04:29: WBC 8.6, RBC 4.67, Hgb 13.0, Hct 40.7, MCV 87.2, MCH 27.8, MCHC 31.9, RDW 13.9, Plt Count 260, MPV 11.4 H, Gran % 77.8 H, Lymph % (Auto) 14.6 L, Emmet % (Auto) 6.6 H, Eos % (Auto) 0.9 L, Baso % (Auto) 0.1, Gran # 6.72 H, Lymph # (Auto) 1.3, Emmet # (Auto) 0.6, Eos # (Auto) 0.1, Baso # (Auto) 0.01 - Medication Orders Current Medication Orders: Discontinued Medications Famotidine (Pepcid) 20 mg IVP STAT STA Stop: 06/29/18 05:33 Last Admin: 06/29/18 05:47 Dose: 20 mg IVP Administration Document 06/29/18 05:47 RD (Rec: 06/29/18 05:47 RD [id number]) Charges for Administration # of IVP Administrations 1 Sodium Chloride (Sodium Chloride 0.9%) 1,000 mls @ 999 mls/hr IV .Q1H1M STA Stop: 06/29/18 05:00 Last Admin: 06/29/18 04:33 Dose: 999 mls/hr eMAR Start Stop Document 06/29/18 04:33 RD (Rec: 06/29/18 04:33 RD [id number]) Intravenous Solution Start Date 06/29/18 Start Time 04:33 End Date 06/29/18 End time 05:33 Total Infusion Time 60 Ondansetron HCl (Zofran Inj) 4 mg IVP STAT STA Stop: 06/29/18 04:01 Last Admin: 06/29/18 04:33 Dose: 4 mg IVP Administration Document 06/29/18 04:33 RD (Rec: 06/29/18 04:33 RD [id number]) Charges for Administration # of IVP Administrations 1 <Inocencio Chavarria - Last Filed: 06/30/18 10:41> - PA / BALANCE CLERK / Resident Statement MD/ has examined the patient and agrees with the treatment plan. (23 yr old F p/w abdominal pain, vomiting. On exam, abd ttp only in epigastric area. No peritoneal signs or RLQ pain. No constipation or diarrhea. PT well appearing in NAD. Labs unremarkable, pain resolved in ED and pt tolerated clears well. No urinary complaints throught visit or complaitns of vaginal d/c. No trauma or fall. Pt was d/c home with return indications and followup.) <Inocencio Chavarria - Last Filed: 06/30/18 10:41> Disposition/Present on Arrival - Present on Arrival Any Indicators Present on Arrival: No History of DVT/PE: No History of Uncontrolled Diabetes: No Urinary Catheter: No History Surgical Site Infection Following: None - Disposition Have Diagnosis and Disposition been Completed?: Yes Disposition Time: 05:44 Patient Plan: Discharge <Conor Ariza - Last Filed: 06/29/18 05:41> <Inocencio Chavarria - Last Filed: 06/30/18 10:41> - Disposition Diagnosis: Vomiting Disposition: HOME/ ROUTINE Condition: IMPROVED Discharge Instructions (ExitCare): Nausea and Vomiting, Adult (DC) Additional Instructions: TOLEDO S NISQUALLY, thank you for letting us take care of you today. Your provider was Inocencio Chavarria and you were treated for stomach pain / vomiting. The emergency medical care you received today was directed at your acute symptoms. If you were prescribed any medication, please fill it and take as directed. It may take several days for your symptoms to resolve. Return to the Emergency Department if your symptoms worsen, do not improve, or if you have any other problems. Please contact your doctor or call one of the physicians/clinics you have been referred to that are listed on the Patient Visit Information form that is included in your discharge packet. Bring any paperwork you were given at discharge with you along with any medications you are taking to your follow up visit. Our treatment cannot replace ongoing medical care by a primary care prov ider outside of the emergency department. Thank you for allowing the [facility] team to be part of your care today. If you had an X-Ray or CT scan: A Radiologist will review the ED reading if any change in treatment is needed we will contact you. If you had a blood, urine, or wound culture: It will take several days for the results, if any change in treatment is needed we will contact you. If you had an STI test: It will take 48 hours for the results. Please call after 1 week if you have not heard back. Prescriptions: Famotidine [Pepcid] 40 mg PO DAILY #5 tablet Forms: [employer] (Syrian), WORK NOTE
[2018-06-29 04:57] LABS: ALB/GLOB RATIO 1.2 (1.1-1.8); ALBUMIN 4.3 g/dL (3.0-4.8); ALT/SGPT 31 U/L (7-56); AST/SGOT 28 U/L (14-36); BLOOD UREA NITROGEN 16 mg/dL (7-21); CALCIUM 9.4 mg/dL (8.4-10.5); GFR NON-AFRICAN AMERICAN > 60; LIPASE 58 U/L (23-300)
[2018-06-29 05:11] LABS: BASO # 0.01 K/mm3 (0.0-2.0); BASO % 0.1 % (0.0-3.0); EOS # 0.1 (0.0-0.7); EOS % 0.9 % (1.5-5.0); GRAN # 6.72 (1.4-6.5); GRAN % 77.8 % (50.0-68.0); LYMPH # 1.3 (1.2-3.4); LYMPH % 14.6 % (22.0-35.0); MEAN CELL VOLUME 87.2 fl (80.0-105.0); MEAN CORPUSCULAR HEMOGLOBIN 27.8 pg (25.0-35.0); MEAN CORPUSCULAR HGB CONC 31.9 g/dl (31.0-37.0); MEAN PLATELET VOLUME 11.4 fl (7.0-11.0); MONO # 0.6 (0.1-0.6); MONO % 6.6 % (1.0-6.0); RBC 4.67 10^6/uL (3.5-6.1); RED CELL DISTRIBUTION WIDTH 13.9 % (11.5-14.5); WHITE BLOOD COUNT 8.6 10^3/uL (4.5-11.0)
[2018-06-29 06:04] VITALS: BP 121/78; PULSE 89; RESP 18; O2SAT 100
== END 2018-06-29 06:00 | disposition home or self-care (01) ==
LOC: ED 03:02
DX: R11.10 Vomiting, unspecified (principal)
CPT/HCPCS: 80053; 83690; 83735; 84100; 85025; 96361; 96374; 96375; 99283; J2405; J7030

== ENCOUNTER 2018-10-16 19:53 | Emergency (ER) | payer BC, OTHER ==
[2018-10-16 20:12] VITALS: RESP 18; TEMP 98.6; O2SAT 100; BMI 26.5
[2018-10-16] MEDS ORDERED: Sodium Chloride 0.9% 1,000 ML IV STA (20:13)
[2018-10-16] MEDS ORDERED: DiphenhydrAMINE 50 mg/ml Inj IVP STA (20:30)
[2018-10-16 21:16] LABS: BASO # 0.02 K/mm3 (0.0-2.0); BASO % 0.2 % (0.0-3.0); EOS # 0.3 (0.0-0.7); EOS % 2.9 % (1.5-5.0); HEMOGLOBIN 11.9 g/dL (12.0-16.0); LYMPH # 2.4 (1.2-3.4); LYMPH % 28.2 % (22.0-35.0); MEAN CELL VOLUME 85.9 fl (80.0-105.0); MEAN CORPUSCULAR HEMOGLOBIN 27.9 pg (25.0-35.0); MEAN CORPUSCULAR HGB CONC 32.4 g/dl (31.0-37.0); MEAN PLATELET VOLUME 10.7 fl (7.0-11.0); MONO # 0.6 (0.1-0.6); MONO % 6.8 % (1.0-6.0); RBC 4.27 10^6/uL (3.5-6.1); RED CELL DISTRIBUTION WIDTH 14.3 % (11.5-14.5); WHITE BLOOD COUNT 8.5 10^3/uL (4.5-11.0)
[2018-10-16 21:28] LABS: ALB/GLOB RATIO 1.2 (1.1-1.8); ALBUMIN 3.8 g/dL (3.0-4.8); ALT/SGPT 9 U/L (7-56); AST/SGOT 24 U/L (14-36); BLOOD UREA NITROGEN 19 mg/dL (7-21); GFR NON-AFRICAN AMERICAN > 60
--- NOTE | 2018-10-16 21:38 | ED PDOC ---
Arrival/HPI - General Chief Complaint: Headache Time Seen by Provider: 10/16/18 19:58 Historian: Patient - History of Present Illness Narrative History of Present Illness (Text): 10/16/18 21:32 23 year old female, whose past medical history includes migraine headaches, presents to the emergency department with headache, since last night. Patient informs she took tylenol which usually works for her migraines, but is not helping. Patient informs of some associated nausea, with 1 episode of vomiting. Patient states headache was gradual onset, is constant and is localized to the center of her forehead, but felt worse today, took aleeve this AM with minimal improvement prompting ER visit. Patient denies any trauma or injury. Patient denies any fever, URI symptoms, dizziness, chest pain, shortness of breath, or any other complaint. Time/Duration: 24 hours Symptom Onset: Gradual Symptom Course: Unchanged, Worsening Quality: Throbbing Activities at Onset: Light Context: Home Past Medical History - Provider Review Nursing Documentation Reviewed: Yes - Past History Past History: No Previous - Infectious Disease Hx of Infectious Diseases: None - Cardiac Hx Cardiac Disorders: No - Pulmonary Hx Respiratory Disorders: No - Neurological Hx Neurological Disorder: No - HEENT Hx HEENT Disorder: No - Renal Hx Renal Disorder: No - Endocrine/Metabolic Hx Endocrine Disorders: No - Hematological/Oncological Hx Blood Disorders: No - Integumentary Hx Dermatological Disorder: No - Musculoskeletal/Rheumatological Hx Musculoskeletal Disorders: No - Gastrointestinal Hx Gastrointestinal Disorders: No - Genitourinary/Gynecological Hx Genitourinary Disorders: No - Psychiatric Hx Psychophysiologic Disorder: No Hx Substance Use: No - Anesthesia Hx Anesthesia: No Hx Anesthesia Reactions: No Hx Malignant Hyperthermia: No Family/Social History - Physician Review Nursing Documentation Reviewed: Yes Family/Social History: No Known Family HX Smoking Status: Never Smoked Hx Alcohol Use: No Hx Substance Use: No Allergies/Home Meds Allergies/Adverse Reactions: Allergies No Known Allergies Allergy (Verified 08/20/18 22:18) Review of Systems - Physician Review All systems were reviewed & negative as marked: Yes - Review of Systems Constitutional: absent: Fevers Respiratory: absent: SOB Cardiovascular: absent: Chest Pain Gastrointestinal: Nausea, Vomiting Neurological: Headache, Other (no head injury or trauma). absent: Dizziness Physical Exam Vital Signs Reviewed: Yes Vital Signs Temp Pulse Resp BP Pulse Ox 10/16/18 20:12 98.6 F 88 18 123/77 100 Temperature: Afebrile Blood Pressure: Normal Pulse: Regular Respiratory Rate: Normal Appearance: Positive for: Well-Appearing, Non-Toxic, Comfortable Pain Distress: Moderate Mental Status: Positive for: Alert and Oriented X 3 - Systems Exam Head: Present: Atraumatic, Normocephalic Pupils: Present: PERRL Extroacular Muscles: Present: EOMI Conjunctiva: Present: Normal Ears: Present: Normal, NORMAL TM Mouth: Present: Moist Mucous Membranes Pharnyx: Present: Normal. No: ERYTHEMA, EXUDATE Neck: Present: Normal Range of Motion. No: Meningeal Signs, Lymphadenopathy Respiratory/Chest: Present: Clear to Auscultation, Good Air Exchange. No: Respiratory Distress, Accessory Muscle Use Cardiovascular: Present: Regular Rate and Rhythm, Normal S1, S2. No: Murmurs Abdomen: No: Tenderness, Distention, Peritoneal Signs Back: Present: Normal Inspection Upper Extremity: Present: Normal Inspection. No: Cyanosis, Edema Lower Extremity: Present: Normal Inspection. No: Edema Neurological: Present: GCS=15, CN II-XII Intact, Speech Normal, Motor Func Grossly Intact, Normal Sensory Function Skin: Present: Warm, Dry, Normal Color. No: Rashes Psychiatric: Present: Alert, Oriented x 3, Normal Insight, Normal Concentration Medical Decision Making ED Course and Treatment: 10/16/18 21:40 Impression: 23 year female presents with headache. Plan: -- Benadryl -- Toradol -- Reglan -- POC -- Reassess and disposition Prior Visits: Notes and results from previous visits were reviewed. Progress Notes: 10/16/18 22:40 [facility] [place] (-) Labs reviewed and wnl. On reevaluation, patient reports improvement of symptoms, reports of mild nausea, given zofran IV. On exam, patient is resting in bed comfortably, she is alert and oriented 3 in no acute distress. Neck is supple, repeat neuro exam shows no focal findings. Advised to follow up with primary care physician or neuro referral in 1-2 days without fail. Advised to take medication as prescribed. Return to the emergency room at any time for any new or worsening symptoms. Patient states she fully agrees with and understands discharge instructions. States that she agrees with the plan and disposition. Verbalized and repeated discharge instructions and plan. I have given the patient opportunity to ask any additional questions. - Lab Interpretations Lab Results: Total Bilirubin 0.2 mg/dL (0.2-1.3) 10/16/18 21:05 AST 24 U/L (14-36) 10/16/18 21:05 ALT 9 U/L (7-56) 10/16/18 21:05 Alkaline Phosphatase 75 U/L (38-126) 10/16/18 21:05 Total Protein 7.0 g/dL (5.8-8.3) 10/16/18 21:05 Albumin 3.8 g/dL (3.0-4.8) 10/16/18 21:05 Globulin 3.3 gm/dL 10/16/18 21:05 Albumin/Globulin Ratio 1.2 (1.1-1.8) 10/16/18 21:05 - Medication Orders Current Medication Orders: Discontinued Medications Diphenhydramine HCl (Benadryl) 25 mg IVP STAT STA Stop: 10/16/18 20:31 Sodium Chloride (Sodium Chloride 0.9%) 1,000 mls @ 1,000 mls/hr IV .Q1H STA Stop: 10/16/18 21:12 Ketorolac Tromethamine (Toradol) 30 mg IVP STAT STA Stop: 10/16/18 20:31 Metoclopramide HCl (Reglan) 10 mg IVP STAT STA Stop: 10/16/18 20:31 - PA / FIELD SERVICES DIRECTOR / Resident Statement MD/ has reviewed & agrees with the documentation as recorded. - Scribe Statement The provider has reviewed the documentation as recorded by the Neel Travis Provider Scribe Attestation: All medical record entries made by the Neel were at my direction and personally dictated by me. I have reviewed the chart and agree that the record accurately reflects my personal performance of the history, physical exam, medical decision making, and the department course for this patient. I have also personally directed, reviewed, and agree with the discharge instructions and disposition. Disposition/Present on Arrival - Present on Arrival Any Indicators Present on Arrival: No History of DVT/PE: No History of Uncontrolled Diabetes: No Urinary Catheter: No History of Decub. Ulcer: No History Surgical Site Infection Following: None - Disposition Have Diagnosis and Disposition been Completed?: Yes Diagnosis: Headache Disposition: HOME/ ROUTINE Disposition Time: 22:45 Patient Plan: Discharge Patient Problems: Current Active Problems Problem Status Onset Headache Acute Condition: STABLE Discharge Instructions (ExitCare): Migraine Headache (DC) Additional Instructions: Thank you for letting us take care of you today. You were treated for headache. The emergency medical care you received today was directed at your acute symptoms. If you were prescribed any medication, please fill it and take as directed. It may take several days for your symptoms to resolve. Return to the Emergency Department if your symptoms worsen, do not improve, or if you have any other problems. Please contact your doctor in 2 days for re-evaluation and follow up / or call one of the physicians/clinics you have been referred to that are listed on the Patient Visit Information form that is included in your discharge packet. Bring any paperwork you were given at discharge with you along with any medications you are taking to your follow up visit. Our treatment cannot replace ongoing medical care by a primary care provider (PCP) outside of the emergency department. Thank you for allowing the [facility] team to be part of your care today. Prescriptions: Metoclopramide HCl [Reglan] 10 mg PO QID PRN #20 tablet PRN Reason: Headache Naproxen 500 mg PO BID PRN #20 tablet PRN Reason: Pain, Moderate (4-7) Referrals: David Brenner MD [Staff Provider] - Follow up with primary Forms: [employer] (Chinese), WORK NOTE
[2018-10-16 23:30] VITALS: BP 121/74; PULSE 82
== END 2018-10-16 23:15 | disposition home or self-care (01) ==
LOC: ED 19:53
DX: R51 Headache (principal)
CPT/HCPCS: 80053; 81025; 83735; 85025; 96374; 96375; 99285; J1200; J1885; J2405; J2765; J7030